=== PATIENT | male | born 1930 | race Caucasian/White ===

== ENCOUNTER 2016-09-04 17:17 | Emergency (ER) | payer OTHER ==
[~2016-09-04] VITALS: Ht 182.9 cm; Wt 87.7 kg
[~2016-09-04 17:17] MED LIST: Aspirin Chewable PO; Augmentin PO; DIOVAN320 MG PO; Hydrodiuril,Oretic,E PO; Norvasc PO
[2016-09-04 18:00] LABS: HEMATOCRIT 33.9 % (38.0-50.0); MCH 30.2 PG (29.0-34.0); MCHC 33.3 G/DL (30.0-36.0); MCV 90.6 FL (86-99); MEAN PLAT.VOLUME 8.7 uM^3 (9.0-12.4); PLATELET COUNT 143 K/uL (156-360); RBC DIS.WIDTH-CV 14.3 % (11.8-14.6); RBC DIS.WIDTH-SD 47.3 % (39-53); RED BLOOD COUNT 3.74 M/uL (4.00-5.50); WHITE BLOOD COUNT 4.1 K/uL (4.1-10.2)
[2016-09-04 18:08] LABS: CHLORIDE 105 mEq/L (99-109); POTASSIUM 3.6 mEq/L (3.7-5.4); SODIUM 144 mEq/L (136-147)
[2016-09-04 18:11] LABS: GLUCOSE 92 mg/dL (70-99)
[2016-09-04 18:12] LABS: ANION GAP 12 MEQ/L (2-14); TOTAL BILIRUBIN 0.5 mg/dL (0.0-1.0)
[2016-09-04 18:14] LABS: ALKALINE PHOSPHATASE 55 IU/L (3-129); GFR ESTIMATE (CALCULATED) 38 mL/min/
[2016-09-04 18:15] LABS: UREA NITROGEN (BUN) 39 mg/dL (9-23)
[2016-09-04 18:42] LABS: ADD MIUA? YES; BILIRUBIN NEGATIVE; BLOOD MODERATE; GLUCOSE (STRIP) NEGATIVE; KETONES NEGATIVE; LEUKOCYTES NEGATIVE; NITRITE NEGATIVE; PROTEIN (STRIP) 100; SPECIFIC GRAVITY 1.019 (1.000-1.030); UROBILINOGEN 0.2 MG/DL (0.2-1.0)
[2016-09-04 18:46] LABS: COLOR AMBER ((YELLOW))
[2016-09-04 18:58] LABS: BACTERIA NONE SEEN /HPF; CASTS NONE SEEN /LPF; CRYSTALS NONE SEEN; EPITHELIAL CELLS NONE SEEN /HPF; MUCUS NONE SEEN /LPF; RED BLOOD CELLS TNTC /HPF (0-5)
[2016-09-04 19:19] VITALS: BP 135/68
== END 2016-09-04 19:20 | disposition home or self-care (01) ==
LOC: EME 17:17 → EXP 17:17
PROVIDERS: Physician Assistant
DX: N28.9 Disorder of kidney and ureter, unspecified (principal); R31.9 Hematuria, unspecified; I10 Essential (primary) hypertension; Z79.82 Long term (current) use of aspirin; Z87.891 Personal history of nicotine dependence
CPT/HCPCS: 80048; 80053; 81003; 85027; 87086; 99281; 99284